=== PATIENT | male | born 1955 | race Two or more races ===

== ENCOUNTER 2024-08-28 03:04 | Inpatient (IN) | payer OTHER ==
[~2024-08-28] VITALS: Ht 167.6 cm; Wt 96.7 kg
[~2024-08-28 03:04] MED LIST: DIVA500T13 PO; EMPA1TAB PO; INSUINJ37 SC; LEVO175T4 PO; LISI-275 PO; RISP0.5T14 PO; SERT-160 PO; SIMV20TA20 PO
[2024-08-28 04:05] LABS: Basophils # (auto) 0 10 ^3/uL (0-0.2); Basophils % (auto) 0.2 % (0.0-2.0); Eosinophils # (auto) 0 10 ^3/uL (0-0.8); Hematocrit 47.2 % (41.0-53.0); Hemoglobin 15.9 g/dL (13.5-17.5); Lymphocytes # (auto) 0.6 10 ^3/uL (0.4-5.4); Lymphocytes % (auto) 9.7 % (10.0-50.0); Mean Corpuscular Hgb Conc. 33.8 g/dL (32.0-36.0); Mean Corpuscular Volume 91.8 fL (80.0-100.0); Monocytes # (auto) 1.1 10 ^3/uL (0-1.3); Neutrophils # (auto) 4.6 10 ^3/uL (1.6-8.6); Neutrophils % (auto) 72.1 % (37.0-80.0); Nucleated Red Blood Cells % 0.1 %; Platelet Count (auto) 103 10^3/uL (140-450); Red Blood Cells 5.14 10^6/uL (4.5-5.90); Red Cell Distribution Width 14.9 % (11.8-14.3); White Blood Cell 6.4 10^3/uL (4.4-10.8)
--- NOTE | 2024-08-28 04:05 | ED.PDOC ---
History of Present Illness HPI Comments 69 y/o M, with a Hx of DM, HLD, HTN, obesity, and TBI, is BIBA for c/o non- radiating, lower back pain and dizziness, today. Per EMS report, patient is a poor historian and endorses on onset of symptoms with associated imbalance and difficulty walking after having a fall and head injury w/o seeking medical in tervention "2x weeks ago." Patient was found on scene by EMS staff with a blood glucose of 128, SpO2 of 88%RA, and pulse rate of 107, with all remaining vitals within yahir limits. En route, patient was placed on 2lpm O2. Upon arrival to ED and time of assessment, patient comments on no recent additional significant event aside from recent Covid19 sick contact exposure at home from residing house-mates. Patient endorses on no further relevant or pertinent past medical, surgical, or family Hx. Patient denies having any chest pain, shortness of breath, headache, urinary symptoms, fever, chills, or other associated symptoms or modifiers at this time. 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 Notes, Medications, Allergies Allergies: Coded Allergies: NO KNOWN ALLERGIES (Unverified , 08/28/24) Information Source: Patient, Emergency Med Personnel Mode of Arrival: EMS Severity: Moderate Timing: Weeks Duration: Since onset Prehospital treatment: 12 Lead EKG, Accucheck (128), [employer], Oxygen (2lpm) Past Medical History PAST MEDICAL HISTORY: DM, High Lipids, HTN Past Medical History (Other): obesity, TBI Surgical History: Denies all surgeries Family History Family History: Unknown Social History Smoker: Non-Smoker Alcohol: Denies ETOH Use Drugs: Denies Drug Use Lives In: Home, Assisted Care Constitutional: denies: chills, diaphoresis, fatigue, fever, malaise, sweats, weakness, others EENTM: denies: blurred vision, double vision, ear bleeding, ear discharge, ear drainage, ear pain, ear ringing, eye pain, eye redness, hearing loss, mouth pain, mouth swelling, nasal discharge, nose bleeding, nose congestion, nose pain, photophobia, tearing, throat pain, throat swelling, voice changes, others Respiratory: denies: cough, hemoptysis, orthopnea, SOB at rest, shortness of breath, SOB with excertion, stridor, wheezing, others Cardiovascular: denies: chest pain, dizzy spells, diaphoresis, Dyspnea on exertion, edema, irregular heart beat, left arm pain, lightheadedness, palpitations, PND, syncope, others Gastrointestinal: denies: abdomen distended, abdominal pain, blood streaked bowels, constipated, diarrhea, dysphagia, difficulty swallowing, hematemesis, melena, nausea, poor appetite, poor fluid intake, rectal bleeding, rectal pain, vomiting, others Genitourinary: denies: burning, dysuria, flank pain, frequency, hematuria, incontinence, penile discharge, penile sore, pain, testicle pain, testicle swelling, urgency, others Neurological: reports: dizziness; denies: fainting, headache, left sided numbness, left sided weakness, numbness, paresthesia, pre-existing deficit, right sided numbness, right sided weakness, seizure, speech problems, tingling, tremors, weakness, others Musculoskeletal: reports: back pain; denies: gout, joint pain, joint swelling, muscle pain, muscle stiffness, neck pain, others Integumetry: denies: bruises, change in color, change in hair/nails, dryness, laceration, lesions, lumps, rash, wounds, others Allergic/Immunocompromised: denies: Difficulty Healing, Frequent Infections, Hives, Itching, others Hematologic/Lymphatic: denies: anemia, blood clots, easy bleeding, easy bruising, swollen glands, others Endocrine: denies: excessive hunger, excessive sweating, excessive thirst, excessive urination, flushing, intolerance to cold, intolerance to heat, unexplained weight gain, unexplained weight loss, others Psychiatric: denies: anxiety, bipolar disorder, hopeless, panic disorder, schizophrenia, sleepless, suicidal, others All Other Systems: Reviewed and Negative Physical Exam General Appearance: No Apparent Distress, Obese, Other (chronically ill appearing ) HEENT: Normal ENT Inspection, Pharynx Normal, TMs Normal Neck: Full Range of Motion, Non-Tender, Normal, Normal Inspection Respiratory: Chest Non-Tender, No Accessory Muscle Use, Other (hypoxic on 2lpm NC) Cardiovascular: No Edema, No JVD, No Murmur, No Gallop, Normal Peripheral Pulses, Regular Rate/Rhythm Breast Exam: Deferred Gastrointestinal: No Organomegaly, Non Tender, No Pulsatile Mass, Normal Bowel Sounds, Soft Genitalia: Deferred Pelvic: Deferred Rectal: Deferred Extremities: No calf tenderness, Normal capillary refill, Normal inspection, Normal range of motion, Non-tender, No pedal edema Musculoskeletal : Apperance: Normal 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 Was a procedure done?: No EKG EKG : Pulse Rate (adult): 103 [place]: Normal Cardiac Rhythm: ST Block: None Hypertrophy: None ST: Normal Differential Dx Considerations may include: viral syndrome, vertigo, UTI, electrolyte imbalance, chronic back pain X-Ray, Labs, Meds, VS Vital Signs Date Time Temp Pulse Resp B/P (MAP) Pulse Ox O2 Delivery O2 Flow Rate FiO2 08/28/24 04:48 111 26 99 Nasal Cannula* 4 36 08/28/24 04:07 99.6 106 34 131/71 (91) 98 99.6 08/28/24 04:05 103 08/28/24 03:19 103 08/28/24 03:09 98.3 104 20 146/75 (98) 98 Lab Test 08/28/24 04:58 08/28/24 04:55 08/28/24 04:40 08/28/24 03:46 Range/Units Urine Color Pending Urine Clarity Pending Urine pH Pending Urine Specific [place] Pending Urine Protein Pending Urine Ketones Pending Urine Blood Pending Urine Nitrite Pending Urine Bilirubin Pending Urine Urobilinogen Pending Urine Leukocyte Esterase Pending Urine RBC Pending Urine WBC Pending Urine Squamous Epithelial Cells Pending Urine Bacteria Pending Urine Glucose Pending Influenza Type A Antigen Negative Negative Influenza Type B Antigen Negative Negative SARS-CoV-2 Antigen (Rapid) Positive *A NEGATIVE Troponin I High Sensitivity 3 L 4 </=54 ng/L White Blood Count 6.4 4.4-10.8 10^3/uL Red Blood Count 5.14 4.5-5.90 10^6/uL Hemoglobin 15.9 13.5-17.5 g/dL Hematocrit 47.2 41.0-53.0 % Mean Corpuscular Volume 91.8 80.0-100.0 fL Mean Corpuscular Hemoglobin 31.0 28.0-32.0 pg Mean Corpuscular Hemoglobin Concent 33.8 32.0-36.0 g/dL Red Cell Distribution Width 14.9 H 11.8-14.3 % Platelet Count 103 L 140-450 10^3/uL Mean Platelet Volume 8.4 6.9-10.8 fL Neutrophils (%) (Auto) 72.1 37.0-80.0 % Lymphocytes (%) (Auto) 9.7 L 10.0-50.0 % Monocytes (%) (Auto) 18.0 H 0.0-12.0 % Eosinophils (%) (Auto) 0.0 0.0-7.0 % Basophils (%) (Auto) 0.2 0.0-2.0 % Neutrophils # (Auto) 4.6 1.6-8.6 10 ^3/uL Lymphocytes # (Auto) 0.6 0.4-5.4 10 ^3/uL Monocytes # (Auto) 1.1 0-1.3 10 ^3/uL Eosinophils # (Auto) 0 0-0.8 10 ^3/uL Basophils # (Auto) 0 0-0.2 10 ^3/uL Nucleated Red Blood Cells 0.1 % Sodium Level 134 L 136-145 mmol/L Potassium Level 4.5 3.5-5.1 mmol/L Chloride Level 100 98-107 mmol/L Carbon Dioxide Level 28 20-31 mmol/L Anion Gap 6 5-15 Blood Urea Nitrogen 14 9-23 mg/dL Creatinine 0.81 0.700-1.30 mg/dL Glomerular Filtration Rate Calc 95 >90 mL/min BUN/Creatinine Ratio 17.3 10.0-20.0 Serum Glucose 121 H 74-106 mg/dL Calcium Level 9.1 8.7-10.4 mg/dL [address] [address] Ph: [phone] DIAGNOSTIC IMAGING Diagnostic Imaging Report : [id number] Signed PATIENT: FABI MARINELLI ACCT: [id number] UNIT: [id number] : 1955 LOC: ER ROOM / BED: / AGE / SEX: 69 / M ADM STATUS: REG ER SERVICE [id number] ORDERING PHYSICIAN: BRUCE BALDERAS MD PROCEDURE(s): CXRP - CHEST PORTABLE REASON: sob ORDER NUMBER(s): [id number], ACCESSION NUMBER(s): [id number] CHEST RADIOGRAPH Indication:sob Technique: Single frontal view of the chest was obtained Comparison: None FINDINGS: Lines and Tubes: None Lungs: Lungs are hypoinflated. Bilateral interstitial prominence. Pleura: No effusion. No pneumothorax. Cardiomediastinal contours: Cardiac silhouette is magnified. Bones: No acute osseous abnormality. IMPRESSION: 1. Pulmonary congestion. ATED BY: TAMI VINCENT MD DICTATED DATE/TIME: 08/28/24412 SIGNED BY: TAMI VINCENT MD SIGNED DATE/TIME: 08/28/24412 CC: Time of 1ST Reevaluation: 03:50 Reevaluation 1ST: Unchanged Patient Education/Counseling: Diagnosis, Treatment Family Education/Counseling: No Family Present Departure 1 Departure Time of Disposition: 05:43 (Patient presented with acute shortness of breath concerning for COPD, Pneumonia, ACS, CHF, Pneumothorax. Less likely PE, Dissection. Data: 1. I ordered and reviewed the result of at least 3 labs including a CBC, BMP, and Troponin. 2. I independently interpreted the following tests: Chest X-ray shows congestion .Risk:This patient has a high risk of morbidity due to further diagnostic testing or treatment and may suffer from respiratory or cardiac etiology . Workup reveals COVID with oxygen requirement and patient should be admitted for further workup. and possible expert consultation.) Impression: Primary Impression: Acute respiratory failure with hypoxia Additional Impression: COVID-19 Disposition: 09 ADMITTED INPATIENT Admit to: Med Surg Condition: Serious Critical Care Note Critical Care Time?: Yes Critical care comment: Acute hypoxia Authorized and Performed by: Bruce Balderas MD Total critical care time: Approximately 44 minutes Due to a high probability of clinically significant, life threatening det erioration, the patient required my highest level of preparedness to intervene emergently and I personally spent this critical care time directly and personally managing the patient. This critical care time included obtaining a history; examining the patient; pulse oximetry; ordering and review of studies; arranging urgent treatment with development of a management plan; evaluation of patient's response to treatment; frequent reassessment; and, discussions with other providers. This critical care time was performed to assess and manage the high probability of imminent, life-threatening deterioration that could result in multi-organ failure. It was exclusive of separately billable procedures and treating other patients and teaching time. Please see my other sections and the rest of the note for further information on patient assessment and treatment. Stability Stability form required: No Heart Score Heart Score: Heart Score Response (Comments) Value History N/A 0 EKG N/A 0 Age N/A 0 Risk Factors N/A 0 Troponin N/A 0 Total 0 I personally scribed for BRUCE BALDERAS MD ([email or web address]) on 08/28/24 at 04:05. Electronically submitted by Gamaliel Aguirre ([email or web address]). I personally scribed for BRUCE BALDERAS MD ([email or web address]) on 08/28/24 at 05:39. Electronically submitted by Gamaliel Aguirre ([email or web address]). BRUCE BALDERAS MD Aug 28, 2024 04:05
--- NOTE | 2024-08-28 04:16 | DVH ---
CHEST RADIOGRAPH Indication:sob Technique: Single frontal view of the chest was obtained Comparison: None FINDINGS: Lines and Tubes: None Lungs: Lungs are hypoinflated. Bilateral interstitial prominence. Pleura: No effusion. No pneumothorax. Cardiomediastinal contours: Cardiac silhouette is magnified. Bones: No acute osseous abnormality. IMPRESSION: 1. Pulmonary congestion.
[2024-08-28 04:19] LABS: Chloride 100 mmol/L (98-107); Potassium 4.5 mmol/L (3.5-5.1); Sodium 134 mmol/L (136-145)
[2024-08-28 04:20] LABS: Anion Gap 6 (5-15); Calcium 9.1 mg/dL (8.7-10.4); Carbon Dioxide 28 mmol/L (20-31)
[2024-08-28 04:25] LABS: BUN/Creatinine Ratio 17.3 (10.0-20.0); Blood Urea Nitrogen 14 mg/dL (9-23); Glucose 121 mg/dL (74-106)
[2024-08-28 04:48] VITALS: PULSE 111; RESP 26; O2SAT 99
[2024-08-28 05:19] LABS: Urine Bacteria None Seen /hpf (None Seen)
[2024-08-28 05:40] LABS: Rapid Influenza A Negative (Negative); Rapid Influenza B Negative (Negative)
[2024-08-28 05:42] LABS: COVID19 ANTIGEN SOFIA FIA POSITIVE (NEGATIVE)
[2024-08-28 05:50] LABS: Urine Blood Negative /uL (Negative); Urine Clarity Clear (Clear); Urine Color Light-Yellow (Yellow); Urine Protein, UAD Negative (Negative); Urine Specific Gravity 1.039 (1.001-1.035); Urine Urobilinogen Normal (Negative); Urine WBC 1 /hpf (0 - 3); Urine pH 6.5 (5.0-9.0)
[2024-08-28] MEDS: methylPREDNISolone SOD SUCC 125 MG/2 ML VL IV ONE (06:12)
--- NOTE | 2024-08-28 06:17 | ECG ---
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
[2024-08-28 08:12] VITALS: O2SAT 97
--- NOTE | 2024-08-28 13:34 | DVHHP2 ---
History of Present Illness Reason for Visit: Low back pain History of Present Illness 69-year-old male with a known history of diabetes mellitus type 2, hypertension, dyslipidemia, morbid obesity class two, history of traumatic brain injury brought in by paramedics we will low back pain, dizziness, difficulty on walking, recent exposure to COVID-19 with sick pupil at home from found to have O2 saturation 88% on room air requiring 4 L of oxygen. Patient was found to have COVID-19 pneumonia. Patient denies any fevers chills , shortness for breath or cough. To be noted patient has a history of traumatic brain injury, very poor historian. 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 Allergies: Coded Allergies: NO KNOWN ALLERGIES (Unverified , 08/28/24) Exam Vital Signs Vital Signs Date Time Temp Pulse Resp B/P (MAP) Pulse Ox O2 Delivery O2 Flow Rate FiO2 08/28/24 12:00 99 24 131/71 (91) 96 08/28/24 08:12 Nasal Cannula* 4 36 08/28/24 04:07 99.6 99.6 Exam HEENT pupils are reactive Neck is supple CVS S1-S2 regular rate and rhythm Respiratory bilateral diminished breath sounds at lung bases GI positive bowel sound Extremity no edema [employer] no motor deficit Labs/Xrays Labs Test 08/28/24 04:58 08/28/24 04:55 08/28/24 04:40 08/28/24 03:46 Range/Units Urine Color Light-yellow Yellow Urine Clarity Clear Clear Urine pH 6.5 5.0-9.0 Urine Specific [place] 1.039 H 1.001-1.035 Urine Protein Negative Negative Urine Ketones 2+ H Negative Urine Blood Negative Negative /uL Urine Nitrite Negative Negative Urine Bilirubin Negative Negative Urine Urobilinogen Normal Negative mg/dL Urine Leukocyte Esterase Negative Negative /uL Urine RBC 4 0 - 3 /hpf Urine WBC 1 0 - 3 /hpf Urine Squamous Epithelial Cells Few <5 /hpf Urine Bacteria None seen None Seen /hpf Urine Glucose 4+ H Normal mg/dL Influenza Type A Antigen Negative Negative Influenza Type B Antigen Negative Negative SARS-CoV-2 Antigen (Rapid) Positive *A NEGATIVE Troponin I High Sensitivity 3 L </=54 ng/L White Blood Count 6.4 4.4-10.8 10^3/uL Red Blood Count 5.14 4.5-5.90 10^6/uL Hemoglobin 15.9 13.5-17.5 g/dL Hematocrit 47.2 41.0-53.0 % Mean Corpuscular Volume 91.8 80.0-100.0 fL Mean Corpuscular Hemoglobin 31.0 28.0-32.0 pg Mean Corpuscular Hemoglobin Concent 33.8 32.0-36.0 g/dL Red Cell Distribution Width 14.9 H 11.8-14.3 % Platelet Count 103 L 140-450 10^3/uL Mean Platelet Volume 8.4 6.9-10.8 fL Neutrophils (%) (Auto) 72.1 37.0-80.0 % Lymphocytes (%) (Auto) 9.7 L 10.0-50.0 % Monocytes (%) (Auto) 18.0 H 0.0-12.0 % Eosinophils (%) (Auto) 0.0 0.0-7.0 % Basophils (%) (Auto) 0.2 0.0-2.0 % Neutrophils # (Auto) 4.6 1.6-8.6 10 ^3/uL Lymphocytes # (Auto) 0.6 0.4-5.4 10 ^3/uL Monocytes # (Auto) 1.1 0-1.3 10 ^3/uL Eosinophils # (Auto) 0 0-0.8 10 ^3/uL Basophils # (Auto) 0 0-0.2 10 ^3/uL Nucleated Red Blood Cells 0.1 % Sodium Level 134 L 136-145 mmol/L Potassium Level 4.5 3.5-5.1 mmol/L Chloride Level 100 98-107 mmol/L Carbon Dioxide Level 28 20-31 mmol/L Anion Gap 6 5-15 Blood Urea Nitrogen 14 9-23 mg/dL Creatinine 0.81 0.700-1.30 mg/dL Glomerular Filtration Rate Calc 95 >90 mL/min BUN/Creatinine Ratio 17.3 10.0-20.0 Serum Glucose 121 H 74-106 mg/dL Calcium Level 9.1 8.7-10.4 mg/dL Assessment/Plan Assessment/Plan 69-year-old male with a known history of traumatic brain injury, diabetes mellitus type 2, hypertension, dyslipidemia, morbid obesity class two presented to the hospital with low back pain unable to walk found to have 1. Acute hypoxic respiratory failure secondary to COVID-19 pneumonia 2. COVID-19 pneumonia 3. Diabetes mellitus type 2 4. Hypertension 5. Dyslipidemia 6. Morbid obesity class two -contact/droplet isolation, dexamethasone, Infectious Disease consultation -continue O2 supplementation, plan of care discussed with the patient and patient's bedside RN. Plan discussed with: Patient Problem List: (1) Acute respiratory failure with hypoxia (2) COVID-19 Date of Service: Aug 28, 2024 Billing Provider: CARA BARNARD MD Common Visit Codes: NOT BILLABLE CARA BARNARD MD Aug 28, 2024 13:34
[2024-08-28] MEDS ORDERED: ONDANSETRON HCL 4 MG/2 ML VIAL IV PRN (13:45)
[2024-08-28] MEDS ORDERED: ACETAMINOPHEN 325 MG TAB PO PRN (13:45)
[2024-08-28] MEDS ORDERED: NITROGLYCERIN 0.4 MG SL TAB SL PRN (13:45)
[2024-08-28] MEDS ORDERED: MORPHINE SULFATE INJ 2 MG/ml SYRG IV PRN ×2 (13:45)
[2024-08-28] MEDS: DexAMETHasone SOD PHOS 10MG/1ML VIAL INJ IV SCH (14:00)
[2024-08-28] MEDS: HYDROcodone-ACET 5/325MG TAB PO PRN (19:08)
[2024-08-28 20:00] VITALS: PULSE 81
[2024-08-28 21:00] VITALS: BP 113/66; PULSE 17; RESP 96; TEMP 97.6; O2SAT 96
[2024-08-28 21:08] VITALS: BP 113/66; PULSE 77; PULSE 81; RESP 17; RESP 18; TEMP 97.6; O2SAT 96; O2SAT 97
[2024-08-28] MEDS: ASCORBIC ACID 500 MG TAB PO SCH (21:48)
[2024-08-29] VITALS (8 sets, daily range): BP systolic 110–156; BP diastolic 72–82; PULSE 63–72; RESP 17–18; TEMP 97.5–98.4; O2SAT 94–99
[2024-08-29 05:17] LABS: Basophils # (auto) 0 10 ^3/uL (0-0.2); Basophils % (auto) 0.2 % (0.0-2.0); Eosinophils # (auto) 0 10 ^3/uL (0-0.8); Hematocrit 49.2 % (41.0-53.0); Hemoglobin 16.1 g/dL (13.5-17.5); Lymphocytes # (auto) 0.9 10 ^3/uL (0.4-5.4); Lymphocytes % (auto) 16.1 % (10.0-50.0); Mean Corpuscular Hemoglobin 30.5 pg (28.0-32.0); Mean Corpuscular Hgb Conc. 32.8 g/dL (32.0-36.0); Monocytes # (auto) 0.8 10 ^3/uL (0-1.3); Neutrophils # (auto) 4.1 10 ^3/uL (1.6-8.6); Neutrophils % (auto) 70.7 % (37.0-80.0); Nucleated Red Blood Cells % 0.2 %; Platelet Count (auto) 102 10^3/uL (140-450); Red Cell Distribution Width 14.8 % (11.8-14.3); White Blood Cell 5.8 10^3/uL (4.4-10.8)
[2024-08-29 05:23] LABS: Alanine Aminotransferase 42 U/L (7-40); Albumin 4.1 g/dL (3.2-4.8); Alkaline Phosphatase 68 U/L (46-116); Anion Gap 6 (5-15); Aspartate Aminotransferase 31 U/L (13-40); BUN/Creatinine Ratio 34.4 (10.0-20.0); Bilirubin, Total 0.4 mg/dL (0.2-1.0); Blood Urea Nitrogen 22 mg/dL (9-23); Calcium 9.3 mg/dL (8.7-10.4); Carbon Dioxide 28 mmol/L (20-31); Chloride 104 mmol/L (98-107); Glucose 114 mg/dL (74-106); Potassium 4.4 mmol/L (3.5-5.1); Sodium 138 mmol/L (136-145); Total Protein 7.3 g/dL (5.7-8.2)
[2024-08-29] MEDS: ZINC SULFATE 220mg CAP or TAB PO SCH (09:04)
[2024-08-29] MEDS: MULTIPLE VITAMIN TAB PO SCH (09:04)
[2024-08-29] MEDS: ENOXAPARIN SOD 40 MG/0.4 ML SYRINGE SC SCH (09:04)
--- NOTE | 2024-08-29 09:59 | DVHINCON2 ---
Date of service: Aug 29, [address] Allison Reason for Consultation COVID History of Present Illness Patient is a 69-year-old male presents to the hospital for the complaint of low back pain, dizziness and difficulty walking. He denies any fever, chills , shortness of breath or cough. He has recent exposure to COVID-19 with sick people at home. He found to have O2 saturation 88% on room air requiring 4 L of oxygen. Patient was found to have COVID-19 pneumonia. Patient has a history of traumatic brain injury, he is very poor historian. Chest x-ray revealed: 08/28: Pulmonary congestion Past Medical History Patient's past medical history is significant for diabetes mellitus type 2, hypertension, dyslipidemia, morbid obesity class two, chronic low back pain and history of traumatic brain injury. Social History Smoke: No ALCOHOL: none Lives: Roommate Allergies: Coded Allergies: NO KNOWN ALLERGIES (Unverified , 08/28/24) Home Meds Reported Medications Levothyroxine Sodium (Levothyroxine Sodium) 175 Mcg Tab, 1 TAB PO DAILY for 90 Days, #90 08/28/24 Sertraline Hcl (Sertraline Hcl) 100 Mg Tab, 2 TAB PO DAILY for 90 Days, #180 08/28/24 Simvastatin (Simvastatin) 20 Mg Tab, 1 TAB PO DAILY for 90 Days, #90 08/28/24 Insulin Glargine (Lantus Solostar) 100 Unit/Ml Inj, 55 UNIT SC HS for 90 Days, #45 08/28/24 Lisinopril (Lisinopril) 5 Mg Tab, 1 TAB PO DAILY for 90 Days, #90 08/28/24 Empagliflozin (Jardiance) 10 Mg Tab, 1 TAB PO DAILY for 30 Days, #30 08/28/24 Risperidone (Risperidone Odt) 0.5 Mg Tab, 2 TAB PO HS for 90 Days, #180 08/28/24 Divalproex Sodium (Divalproex Sodium) 500 Mg Tab, 1 TAB PO TID for 20 Days, #60 08/28/24 Current Medications Current Medications Medications (Trade) Dose Ordered Sig/Verito Route PRN Reason Start Time Stop Time Status Last Admin Acetaminophen/ Hydrocodone Bitart ([place] 5/325MG Tab) 1 tab Q4HP PRN PO MODERATE PAIN (4-6 PAIN SCALE) 08/28/24 13:45 08/29/24 04:50 Ondansetron HCl (Zofran) 4 mg Q4HP PRN IV NAUSEA / VOMITING 08/28/24 13:45 Enoxaparin Sodium (Lovenox) 40 mg DAILY SC 08/29/24 10:00 08/29/24 09:04 Zinc Sulfate 220 mg DAILY PO 08/29/24 10:00 08/29/24 09:04 Ascorbic Acid (Vitamin C Tablet) 500 mg BID PO 08/28/24 22:00 08/29/24 09:04 Multivitamins (Mvi Tab) 1 tab DAILY PO 08/29/24 10:00 08/29/24 09:04 Acetaminophen (Tylenol Tablet) 650 mg Q6HP PRN PO PAIN SCALE 1-3 OR TEMP>100.4 08/28/24 13:45 Morphine Sulfate 2 mg Q4HPRN PRN IV SEVERE PAIN (7-10 PAIN SCALE) 08/28/24 13:45 Nitroglycerin (Ntrostat Sublingual) 0.4 mg Q5MINP PRN SL FOR CHEST PAIN 08/28/24 13:45 Morphine Sulfate 2 mg Q30M PRN IV FOR CHEST PAIN 08/28/24 13:45 Dexamethasone Sodium Phosphate (Decadron Injection) 6 mg DAILY IV 08/28/24 13:45 08/29/24 09:04 Review of Systems poor historian Vital Signs Vital Signs Date Time Temp Pulse Resp B/P (MAP) Pulse Ox O2 Delivery O2 Flow Rate FiO2 08/29/24 05:00 98.2 67 18 136/76 (96) 98 98.2 08/28/24 21:08 Nasal Cannula* 3 32 Physical Exam General: Patient appears alert, comfortable and well-appearing. HEENT: Normocephalic, atraumatic, Sclera anicteric, conjunctiva clear, No nasal discharge or congestion. Mucous membranes moist, no tonsillar erythema or exudates. Neck: No cervical lymphadenopathy or masses. No neck stiffness. Lungs: Breath sounds clear bilaterally, no wheezes, rales, or rhonchi. No use of accessory muscles or respiratory distress. Cardiovascular: Regular rate and rhythm, no murmurs, rubs, or gallops. Abdomen: Soft, non-tender, non-distended. Bowel sounds present in all quadrants. No hepatosplenomegaly or masses. Skin: No rash, petechiae, or ecchymosis. Extremities: No edema, cyanosis, or clubbing. No tenderness to palpation, erythema, or swelling in joints. No signs of deep vein thrombosis (DVT). Neurologic: truaumatic brain injury Labs/Diagnostic Data Labs Test 08/29/24 04:33 08/28/24 04:58 08/28/24 04:55 08/28/24 04:40 Range/Units White Blood Count 5.8 4.4-10.8 10^3/uL Red Blood Count 5.30 4.5-5.90 10^6/uL Hemoglobin 16.1 13.5-17.5 g/dL Hematocrit 49.2 41.0-53.0 % Mean Corpuscular Volume 93.0 80.0-100.0 fL Mean Corpuscular Hemoglobin 30.5 28.0-32.0 pg Mean Corpuscular Hemoglobin Concent 32.8 32.0-36.0 g/dL Red Cell Distribution Width 14.8 H 11.8-14.3 % Platelet Count 102 L 140-450 10^3/uL Mean Platelet Volume 8.5 6.9-10.8 fL Neutrophils (%) (Auto) 70.7 37.0-80.0 % Lymphocytes (%) (Auto) 16.1 10.0-50.0 % Monocytes (%) (Auto) 13.0 H 0.0-12.0 % Eosinophils (%) (Auto) 0.0 0.0-7.0 % Basophils (%) (Auto) 0.2 0.0-2.0 % Neutrophils # (Auto) 4.1 1.6-8.6 10 ^3/uL Lymphocytes # (Auto) 0.9 0.4-5.4 10 ^3/uL Monocytes # (Auto) 0.8 0-1.3 10 ^3/uL Eosinophils # (Auto) 0 0-0.8 10 ^3/uL Basophils # (Auto) 0 0-0.2 10 ^3/uL Nucleated Red Blood Cells 0.2 % Sodium Level 138 136-145 mmol/L Potassium Level 4.4 3.5-5.1 mmol/L Chloride Level 104 98-107 mmol/L Carbon Dioxide Level 28 20-31 mmol/L Anion Gap 6 5-15 Blood Urea Nitrogen 22 9-23 mg/dL Creatinine 0.64 L 0.700-1.30 mg/dL Glomerular Filtration Rate Calc 102 >90 mL/min BUN/Creatinine Ratio 34.4 H 10.0-20.0 Serum Glucose 114 H 74-106 mg/dL Calcium Level 9.3 8.7-10.4 mg/dL Total Bilirubin 0.4 0.2-1.0 mg/dL Aspartate Amino Transferase (AST) 31 13-40 U/L Alanine Aminotransferase (ALT) 42 H 7-40 U/L Alkaline Phosphatase 68 46-116 U/L Total Protein 7.3 5.7-8.2 g/dL Albumin 4.1 3.2-4.8 g/dL Urine Color Light-yellow Yellow Urine Clarity Clear Clear Urine pH 6.5 5.0-9.0 Urine Specific [place] 1.039 H 1.001-1.035 Urine Protein Negative Negative Urine Ketones 2+ H Negative Urine Blood Negative Negative /uL Urine Nitrite Negative Negative Urine Bilirubin Negative Negative Urine Urobilinogen Normal Negative mg/dL Urine Leukocyte Esterase Negative Negative /uL Urine RBC 4 0 - 3 /hpf Urine WBC 1 0 - 3 /hpf Urine Squamous Epithelial Cells Few <5 /hpf Urine Bacteria None seen None Seen /hpf Urine Glucose 4+ H Normal mg/dL Influenza Type A Antigen Negative Negative Influenza Type B Antigen Negative Negative SARS-CoV-2 Antigen (Rapid) Positive *A NEGATIVE Troponin I High Sensitivity 3 L </=54 ng/L Assessment Patient is a 69-year-old male with 1. COVID-19 infection 2. Acute hypoxic respiratory failure Recommendations 1. Start remdesivir for 5 days 2. Continue Dexamethasone 6 mg per daily for 10 days or until discharge 3. Consider self proning Thank you for consultation. Plan discussed with the nurse and physician. Plan discussed with: Other ALYSE WEBER MD Aug 29, 2024 09:59
[2024-08-29] MEDS ORDERED: REMDESIVIR PER PHARMACY 0 ML IV SCH (10:00)
[2024-08-29] MEDS ORDERED: DEXTROSE (50%) 50ML SYRG IV PRN (11:15)
[2024-08-29] MEDS: REMDESIVIR 200mg in NS 210mL LOADING DOSE ADULT IV ONE (11:18)
[2024-08-29] MEDS: ACCU-CHEK COMFORT CURVE STRIP VI SCH (11:30)
[2024-08-29] MEDS: InsuLIN REG 1unit/0.01ml Soln (100units/ml) SC SCH (11:30)
--- NOTE | 2024-08-29 16:19 | DVHPN2 ---
Subjective Overnight events noted. Patient currently on remdesivir. 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 Medications Current Medications Medications Dose Ordered Sig/Verito Route Start Time Stop Time Status Last Admin Dose Admin Acetaminophen/ Hydrocodone Bitart 1 tab Q4HP PRN PO 08/28/24 13:45 08/29/24 04:50 1 TAB Ondansetron HCl 4 mg Q4HP PRN IV 08/28/24 13:45 Enoxaparin Sodium 40 mg DAILY SC 08/29/24 10:00 08/29/24 09:04 40 MG Zinc Sulfate 220 mg DAILY PO 08/29/24 10:00 08/29/24 09:04 220 MG Ascorbic Acid 500 mg BID PO 08/28/24 22:00 08/29/24 09:04 500 MG Multivitamins 1 tab DAILY PO 08/29/24 10:00 08/29/24 09:04 1 TAB Acetaminophen 650 mg Q6HP PRN PO 08/28/24 13:45 Morphine Sulfate 2 mg Q4HPRN PRN IV 08/28/24 13:45 Nitroglycerin 0.4 mg Q5MINP PRN SL 08/28/24 13:45 Morphine Sulfate 2 mg Q30M PRN IV 08/28/24 13:45 Dexamethasone Sodium Phosphate 6 mg DAILY IV 08/28/24 13:45 08/29/24 09:04 6 MG Remdesivir 0 ml @ 0 mls/hr PER PHARMACY IV 08/29/24 10:00 09/02/24 10:01 Remdesivir 100 mg/ Sodium Chloride 250 ml @ 250 mls/hr DAILY@1500 IV 08/30/24 15:00 09/02/24 15:59 Diagnostic Test (Pha) 1 strip ACHS 08/29/24 11:30 08/29/24 11:30 1 STRIP Insulin Human Regular ACHS SC 08/29/24 11:30 08/29/24 11:30 3 UNITS Dextrose 50 ml UD PRN IV 08/29/24 11:15 Laboratory Results Laboratory Tests 08/29/24 04:33 Chemistry Test 08/29/24 04:33 Albumin 4.1 g/dL (3.2-4.8) Calcium Level 9.3 mg/dL (8.7-10.4) Total Protein 7.3 g/dL (5.7-8.2) LFT Test 08/29/24 04:33 Alanine Aminotransferase (ALT) 42 U/L (7-40) H Alkaline Phosphatase 68 U/L (46-116) Aspartate Amino Transferase (AST) 31 U/L (13-40) Total Bilirubin 0.4 mg/dL (0.2-1.0) Urinalysis Test 08/28/24 04:58 Urine Color Light-yellow (Yellow) Urine Clarity Clear (Clear) Urine pH 6.5 (5.0-9.0) Urine Specific [place] 1.039 (1.001-1.035) Urine Protein Negative (Negative) Urine Ketones 2+ (Negative) H Urine Blood Negative /uL (Negative) Urine Nitrite Negative (Negative) Urine Bilirubin Negative (Negative) Urine Urobilinogen Normal mg/dL (Negative) Urine Leukocyte Esterase Negative /uL (Negative) Urine RBC 4 /hpf (0 - 3) Urine WBC 1 /hpf (0 - 3) Urine Squamous Epithelial Cells Few /hpf (<5) Urine Bacteria None seen /hpf (None Seen) Urine Glucose 4+ mg/dL (Normal) H Assessment/Plan Assessment/Plan 69-year-old male with a known history of traumatic brain injury, diabetes mellitus type 2, hypertension, dyslipidemia, morbid obesity class two presented to the hospital with low back pain unable to walk found to have 1. Acute hypoxic respiratory failure secondary to COVID-19 pneumonia 2. COVID-19 pneumonia 3. Diabetes mellitus type 2 4. Hypertension 5. Dyslipidemia 6. Morbid obesity classII -contact/droplet isolation, dexamethasone, Infectious Disease consultation appreciated, continue remdesivir -continue O2 supplementation, plan of care discussed with the patient and patient's bedside RN. Plan discussed with: Patient My Orders Orders - CARA BARNARD MD Procedure Category Date Status Time Insert/Manage Urinary DARIO 08/28/24 In Process Catheter 17:30 Glucose Blood PHA 08/29/24 In Process (Accu-Chek Comfort 11:30 Insulin R (Human) PHA 08/29/24 In Process (Insulin R) 11:30 Dextrose 50% Syringe PHA 08/29/24 In Process 11:15 Date of Service: Aug 29, 2024 Billing Provider: CARA BARNARD MD Common Visit Codes: NOT BILLABLE CARA BARNARD MD Aug 29, 2024 16:19
[2024-08-30] VITALS (8 sets, daily range): BP systolic 121–159; BP diastolic 74–79; PULSE 55–75; RESP 17–22; TEMP 97.5–98.1; O2SAT 97–98
--- NOTE | 2024-08-30 10:32 | DVHPN2 ---
Progress Note - Dictate Date Seen: Aug 30, 2024 Subjective Patient was seen and evaluated. He is alert and awake, oriented x4. Patient stated always have generalized body pain, 6/10 at this time and tolerable. Patient is on 2L oxygen via nasal cannula, tolerated well, no sign of acute distress noted. vital signs Vital Sign Date Time Temp Pulse Resp B/P (MAP) Pulse Ox O2 Delivery O2 Flow Rate FiO2 08/30/24 09:00 97.7 61 22 159/79 (105) 97 97.7 08/30/24 08:00 Nasal Cannula* 2 28 Total Intake and Output 08/29/24 08/29/24 08/30/24 15:00 23:00 07:00 Intake Total 1200 ml 1500 ml Output Total 700 ml 1000 ml Balance 500 ml 500 ml medications Current Medications Medications Dose Ordered Sig/Verito Route Start Time Stop Time Status Last Admin Dose Admin Acetaminophen/ Hydrocodone Bitart 1 tab Q4HP PRN PO 08/28/24 13:45 08/30/24 09:51 1 TAB Ondansetron HCl 4 mg Q4HP PRN IV 08/28/24 13:45 Enoxaparin Sodium 40 mg DAILY SC 08/29/24 10:00 08/30/24 09:37 40 MG Zinc Sulfate 220 mg DAILY PO 08/29/24 10:00 08/30/24 09:37 220 MG Ascorbic Acid 500 mg BID PO 08/28/24 22:00 08/30/24 09:37 500 MG Multivitamins 1 tab DAILY PO 08/29/24 10:00 08/30/24 09:37 1 TAB Acetaminophen 650 mg Q6HP PRN PO 08/28/24 13:45 Morphine Sulfate 2 mg Q4HPRN PRN IV 08/28/24 13:45 Nitroglycerin 0.4 mg Q5MINP PRN SL 08/28/24 13:45 Morphine Sulfate 2 mg Q30M PRN IV 08/28/24 13:45 Dexamethasone Sodium Phosphate 6 mg DAILY IV 08/28/24 13:45 08/30/24 09:37 6 MG Remdesivir 0 ml @ 0 mls/hr PER PHARMACY IV 08/29/24 10:00 09/02/24 10:01 Remdesivir 100 mg/ Sodium Chloride 250 ml @ 250 mls/hr DAILY@1500 IV 08/30/24 15:00 09/02/24 15:59 Diagnostic Test (Pha) 1 strip ACHS 08/29/24 11:30 08/30/24 05:15 1 STRIP Insulin Human Regular ACHS SC 08/29/24 11:30 08/29/24 21:13 6 UNITS Dextrose 50 ml UD PRN IV 08/29/24 11:15 objective General: Patient appears alert, comfortable and well-appearing. HEENT: Normocephalic, atraumatic, Sclera anicteric, conjunctiva clear, No nasal discharge or congestion. Mucous membranes moist, no tonsillar erythema or exudates. Neck: No cervical lymphadenopathy or masses. No neck stiffness. Lungs: Breath sounds clear bilaterally, no wheezes, rales, or rhonchi. No use of accessory muscles or respiratory distress. Cardiovascular: Regular rate and rhythm, no murmurs, rubs, or gallops. Abdomen: Soft, non-tender, non-distended. Bowel sounds present in all quadrants. No hepatosplenomegaly or masses. Skin: No rash, petechiae, or ecchymosis. Extremities: No edema, cyanosis, or clubbing. No tenderness to palpation, erythema, or swelling in joints. No signs of deep vein thrombosis (DVT). Neurologic: Patient is alert and oriented to person, place, and time. Cranial nerves II-XII intact. Motor strength 5/5 bilaterally in all extremities. laboratory and microbiology Laboratory Tests 08/29/24 04:33 Test 08/29/24 04:33 Range/Units Serum Glucose 114 H 74-106 mg/dL Assessment/Plan Patient is a 69-year-old male with 1. COVID-19 infection 2. Acute hypoxic respiratory failure Recommendations 1. Start remdesivir for 5 days 2. Continue Dexamethasone 6 mg per daily for 10 days or until discharge 3. Consider self proning Thank you for consultation. Plan discussed with the nurse and physician. ALYSE WEBER MD Aug 30, 2024 10:32
[2024-08-30] MEDS: NS IV SCH (15:11)
[2024-08-30] MEDS: REMDESIVIR IV SCH (15:11)
--- NOTE | 2024-08-30 16:38 | DVHPN2 ---
Subjective Overnight events noted. Patient currently on remdesivir. 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 Medications Current Medications Medications Dose Ordered Sig/Verito Route Start Time Stop Time Status Last Admin Dose Admin Acetaminophen/ Hydrocodone Bitart 1 tab Q4HP PRN PO 08/28/24 13:45 08/30/24 09:51 1 TAB Ondansetron HCl 4 mg Q4HP PRN IV 08/28/24 13:45 Enoxaparin Sodium 40 mg DAILY SC 08/29/24 10:00 08/30/24 09:37 40 MG Zinc Sulfate 220 mg DAILY PO 08/29/24 10:00 08/30/24 09:37 220 MG Ascorbic Acid 500 mg BID PO 08/28/24 22:00 08/30/24 09:37 500 MG Multivitamins 1 tab DAILY PO 08/29/24 10:00 08/30/24 09:37 1 TAB Acetaminophen 650 mg Q6HP PRN PO 08/28/24 13:45 Morphine Sulfate 2 mg Q4HPRN PRN IV 08/28/24 13:45 Nitroglycerin 0.4 mg Q5MINP PRN SL 08/28/24 13:45 Morphine Sulfate 2 mg Q30M PRN IV 08/28/24 13:45 Dexamethasone Sodium Phosphate 6 mg DAILY IV 08/28/24 13:45 08/30/24 09:37 6 MG Remdesivir 0 ml @ 0 mls/hr PER PHARMACY IV 08/29/24 10:00 09/02/24 10:01 Remdesivir 100 mg/ Sodium Chloride 250 ml @ 250 mls/hr DAILY@1500 IV 08/30/24 15:00 09/02/24 15:59 08/30/24 15:11 250 MLS/HR Diagnostic Test (Pha) 1 strip ACHS 08/29/24 11:30 08/30/24 11:37 1 STRIP Insulin Human Regular ACHS SC 08/29/24 11:30 08/30/24 11:44 3 UNITS Dextrose 50 ml UD PRN IV 08/29/24 11:15 Laboratory Results Laboratory Tests 08/29/24 04:33 Urinalysis Test 08/28/24 04:58 Urine Color Light-yellow (Yellow) Urine Clarity Clear (Clear) Urine pH 6.5 (5.0-9.0) Urine Specific [place] 1.039 (1.001-1.035) Urine Protein Negative (Negative) Urine Ketones 2+ (Negative) H Urine Blood Negative /uL (Negative) Urine Nitrite Negative (Negative) Urine Bilirubin Negative (Negative) Urine Urobilinogen Normal mg/dL (Negative) Urine Leukocyte Esterase Negative /uL (Negative) Urine RBC 4 /hpf (0 - 3) Urine WBC 1 /hpf (0 - 3) Urine Squamous Epithelial Cells Few /hpf (<5) Urine Bacteria None seen /hpf (None Seen) Urine Glucose 4+ mg/dL (Normal) H Assessment/Plan Assessment/Plan 69-year-old male with a known history of traumatic brain injury, diabetes mellitus type 2, hypertension, dyslipidemia, morbid obesity class two presented to the hospital with low back pain unable to walk found to have 1. Acute hypoxic respiratory failure secondary to COVID-19 pneumonia 2. COVID-19 pneumonia 3. Diabetes mellitus type 2 4. Hypertension 5. Dyslipidemia 6. Morbid obesity classII -contact/droplet isolation, dexamethasone, Infectious Disease consultation appreciated, continue remdesivir -continue O2 supplementation, plan of care discussed with the patient and patient's bedside RN. Plan discussed with: Patient Date of Service: Aug 30, 2024 Billing Provider: CARA BARNARD MD Common Visit Codes: NOT BILLABLE CARA BARNARD MD Aug 30, 2024 16:38
[2024-08-31] VITALS (8 sets, daily range): BP systolic 110–140; BP diastolic 67–80; PULSE 53–74; RESP 16–19; TEMP 97.5–98.1; O2SAT 96–98
[2024-08-31] MEDS: LEVOTHYROXINE SODIUM 50 MCG TAB PO SCH (07:40)
[2024-08-31] MEDS: SERTRALINE HCL 50 MG TAB PO SCH (09:29)
[2024-08-31] MEDS: risperiDONE 1 MG TAB PO SCH (09:29)
[2024-08-31] MEDS: LISINOPRIL 5 MG TAB PO SCH (09:30)
--- NOTE | 2024-08-31 13:13 | DVHPN2 ---
Progress Note - Dictate Date Seen: Aug 31, 2024 Subjective Patient was seen and evaluated. He is alert and awake, oriented x4. vital signs Vital Sign Date Time Temp Pulse Resp B/P (MAP) Pulse Ox O2 Delivery O2 Flow Rate FiO2 08/31/24 13:00 97.7 74 18 114/67 (83) 97 97.7 08/31/24 08:00 Nasal Cannula* 3 32 Total Intake and Output 08/30/24 08/30/24 08/31/24 15:00 23:00 07:00 Intake Total 1350 ml 600 ml Output Total 1350 ml 375 ml Balance 0 ml 225 ml medications Current Medications Medications Dose Ordered Sig/Verito Route Start Time Stop Time Status Last Admin Dose Admin Acetaminophen/ Hydrocodone Bitart 1 tab Q4HP PRN PO 08/28/24 13:45 08/31/24 01:09 1 TAB Ondansetron HCl 4 mg Q4HP PRN IV 08/28/24 13:45 Enoxaparin Sodium 40 mg DAILY SC 08/29/24 10:00 08/31/24 09:29 40 MG Zinc Sulfate 220 mg DAILY PO 08/29/24 10:00 08/31/24 09:29 220 MG Ascorbic Acid 500 mg BID PO 08/28/24 22:00 08/31/24 09:30 500 MG Multivitamins 1 tab DAILY PO 08/29/24 10:00 08/31/24 09:30 1 TAB Acetaminophen 650 mg Q6HP PRN PO 08/28/24 13:45 Morphine Sulfate 2 mg Q4HPRN PRN IV 08/28/24 13:45 Nitroglycerin 0.4 mg Q5MINP PRN SL 08/28/24 13:45 Morphine Sulfate 2 mg Q30M PRN IV 08/28/24 13:45 Dexamethasone Sodium Phosphate 6 mg DAILY IV 08/28/24 13:45 08/31/24 09:30 6 MG Remdesivir 0 ml @ 0 mls/hr PER PHARMACY IV 08/29/24 10:00 09/02/24 10:01 Remdesivir 100 mg/ Sodium Chloride 250 ml @ 250 mls/hr DAILY@1500 IV 08/30/24 15:00 09/02/24 15:59 08/30/24 15:11 250 MLS/HR Diagnostic Test (Pha) 1 strip ACHS 08/29/24 11:30 08/31/24 11:42 1 STRIP Insulin Human Regular ACHS SC 08/29/24 11:30 08/31/24 11:28 6 UNITS Dextrose 50 ml UD PRN IV 08/29/24 11:15 Divalproex Sodium 500 mg TID PO 08/30/24 22:00 08/31/24 06:32 500 MG Risperidone 1 mg DAILY PO 08/31/24 10:00 08/31/24 09:29 1 MG Sertraline HCl 200 mg DAILY PO 08/31/24 10:00 08/31/24 09:29 200 MG Lisinopril 5 mg DAILY PO 08/31/24 10:00 08/31/24 09:30 5 MG Levothyroxine Sodium 175 mcg QAM@0600 PO 08/31/24 06:00 08/31/24 07:40 175 MCG objective General: Patient appears alert, comfortable and well-appearing. HEENT: Normocephalic, atraumatic, Sclera anicteric, conjunctiva clear, No nasal discharge or congestion. Mucous membranes moist, no tonsillar erythema or exudates. Neck: No cervical lymphadenopathy or masses. No neck stiffness. Lungs: Breath sounds clear bilaterally, no wheezes, rales, or rhonchi. No use of accessory muscles or respiratory distress. Cardiovascular: Regular rate and rhythm, no murmurs, rubs, or gallops. Abdomen: Soft, non-tender, non-distended. Bowel sounds present in all quadrants. No hepatosplenomegaly or masses. Skin: No rash, petechiae, or ecchymosis. Extremities: No edema, cyanosis, or clubbing. No tenderness to palpation, erythema, or swelling in joints. No signs of deep vein thrombosis (DVT). Neurologic: Patient is alert and oriented to person, place, and time. Cranial nerves II-XII intact. Motor strength 5/5 bilaterally in all extremities. laboratory and microbiology Laboratory Tests 08/29/24 04:33 Test 08/29/24 04:33 Range/Units Serum Glucose 114 H 74-106 mg/dL Assessment/Plan Patient is a 69-year-old male with 1. COVID-19 infection 2. Acute hypoxic respiratory failure Recommendations 1. Start remdesivir for 5 days 2. Continue Dexamethasone 6 mg per daily for 10 days or until discharge 3. Consider self proning Thank you for consultation. Plan discussed with the nurse and physician. ALYSE WEBER MD Aug 31, 2024 13:13
--- NOTE | 2024-08-31 16:02 | DVHPN2 ---
Subjective Overnight events noted. Patient currently on remdesivir. 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 Medications Current Medications Medications Dose Ordered Sig/Verito Route Start Time Stop Time Status Last Admin Dose Admin Acetaminophen/ Hydrocodone Bitart 1 tab Q4HP PRN PO 08/28/24 13:45 08/31/24 01:09 1 TAB Ondansetron HCl 4 mg Q4HP PRN IV 08/28/24 13:45 Enoxaparin Sodium 40 mg DAILY SC 08/29/24 10:00 08/31/24 09:29 40 MG Zinc Sulfate 220 mg DAILY PO 08/29/24 10:00 08/31/24 09:29 220 MG Ascorbic Acid 500 mg BID PO 08/28/24 22:00 08/31/24 09:30 500 MG Multivitamins 1 tab DAILY PO 08/29/24 10:00 08/31/24 09:30 1 TAB Acetaminophen 650 mg Q6HP PRN PO 08/28/24 13:45 Morphine Sulfate 2 mg Q4HPRN PRN IV 08/28/24 13:45 Nitroglycerin 0.4 mg Q5MINP PRN SL 08/28/24 13:45 Morphine Sulfate 2 mg Q30M PRN IV 08/28/24 13:45 Dexamethasone Sodium Phosphate 6 mg DAILY IV 08/28/24 13:45 08/31/24 09:30 6 MG Remdesivir 0 ml @ 0 mls/hr PER PHARMACY IV 08/29/24 10:00 09/02/24 10:01 Remdesivir 100 mg/ Sodium Chloride 250 ml @ 250 mls/hr DAILY@1500 IV 08/30/24 15:00 09/02/24 15:59 08/31/24 15:28 250 MLS/HR Diagnostic Test (Pha) 1 strip ACHS 08/29/24 11:30 08/31/24 11:42 1 STRIP Insulin Human Regular ACHS SC 08/29/24 11:30 08/31/24 11:28 6 UNITS Dextrose 50 ml UD PRN IV 08/29/24 11:15 Divalproex Sodium 500 mg TID PO 08/30/24 22:00 08/31/24 13:15 500 MG Risperidone 1 mg DAILY PO 08/31/24 10:00 08/31/24 09:29 1 MG Sertraline HCl 200 mg DAILY PO 08/31/24 10:00 08/31/24 09:29 200 MG Lisinopril 5 mg DAILY PO 08/31/24 10:00 08/31/24 09:30 5 MG Levothyroxine Sodium 175 mcg QAM@0600 PO 08/31/24 06:00 08/31/24 07:40 175 MCG Throat Lozenges 1 elissa Q2HP PRN MT 08/31/24 15:00 Laboratory Results Laboratory Tests 08/29/24 04:33 Urinalysis Test 08/28/24 04:58 Urine Color Light-yellow (Yellow) Urine Clarity Clear (Clear) Urine pH 6.5 (5.0-9.0) Urine Specific [place] 1.039 (1.001-1.035) Urine Protein Negative (Negative) Urine Ketones 2+ (Negative) H Urine Blood Negative /uL (Negative) Urine Nitrite Negative (Negative) Urine Bilirubin Negative (Negative) Urine Urobilinogen Normal mg/dL (Negative) Urine Leukocyte Esterase Negative /uL (Negative) Urine RBC 4 /hpf (0 - 3) Urine WBC 1 /hpf (0 - 3) Urine Squamous Epithelial Cells Few /hpf (<5) Urine Bacteria None seen /hpf (None Seen) Urine Glucose 4+ mg/dL (Normal) H Assessment/Plan Assessment/Plan 69-year-old male with a known history of traumatic brain injury, diabetes mellitus type 2, hypertension, dyslipidemia, morbid obesity class two presented to the hospital with low back pain unable to walk found to have 1. Acute hypoxic respiratory failure secondary to COVID-19 pneumonia 2. COVID-19 pneumonia 3. Diabetes mellitus type 2 4. Hypertension 5. Dyslipidemia 6. Morbid obesity classII -contact/droplet isolation, dexamethasone, Infectious Disease consultation appreciated, continue remdesivir -continue O2 supplementation, plan of care discussed with the patient and patient's bedside RN. Plan discussed with: Patient My Orders Orders - CARA BARNARD MD Procedure Category Date Status Time Divalproex Dr Tablet PHA 08/30/24 In Process (Depakote "Dr" Tabl 22:00 Sertraline Hcl PHA 08/31/24 In Process (Zoloft) 10:00 Lisinopril Tablet PHA 08/31/24 In Process (Zestril Tablet) 10:00 Levothyroxine Tablet PHA 08/31/24 In Process (Synthroid Tablet) 06:00 Risperidone Tablet PHA 08/31/24 In Process (Risperdal Tablet) 10:00 Throat Lozenges PHA 08/31/24 In Process (Cepastat Lozenges) 15:00 Date of Service: Aug 31, 2024 Billing Provider: CARA BARNARD MD Common Visit Codes: NOT BILLABLE CARA BARNARD MD Aug 31, 2024 16:01
[2024-08-31] MEDS: THROAT LOZENGES(CEPASTAT) MT PRN (16:35)
[2024-09-01] VITALS (11 sets, daily range): BP systolic 108–133; BP diastolic 55–74; PULSE 53–70; RESP 17–20; TEMP 97.5–98.2; O2SAT 95–98
--- NOTE | 2024-09-01 13:03 | DVHPN2 ---
Progress Note - Dictate Date Seen: Sep 01, 2024 Subjective Patient was seen and evaluated. He is alert and awake, oriented x4. Patient ambulates with use of walker at the bed side. No complaints of pain, SOB at this time. vital signs Vital Sign Date Time Temp Pulse Resp B/P (MAP) Pulse Ox O2 Delivery O2 Flow Rate FiO2 09/01/24 09:47 97.5 58 18 112/55 (74) 98 97.5 09/01/24 08:16 Nasal Cannula* 2 28 Total Intake and Output 08/31/24 08/31/24 09/01/24 15:00 23:00 07:00 Intake Total 360 ml 810 ml 800 ml Output Total 825 ml 450 ml Balance 360 ml -15 ml 350 ml medications Current Medications Medications Dose Ordered Sig/Verito Route Start Time Stop Time Status Last Admin Dose Admin Acetaminophen/ Hydrocodone Bitart 1 tab Q4HP PRN PO 08/28/24 13:45 09/01/24 06:17 1 TAB Ondansetron HCl 4 mg Q4HP PRN IV 08/28/24 13:45 Enoxaparin Sodium 40 mg DAILY SC 08/29/24 10:00 09/01/24 09:28 40 MG Zinc Sulfate 220 mg DAILY PO 08/29/24 10:00 09/01/24 09:27 220 MG Ascorbic Acid 500 mg BID PO 08/28/24 22:00 09/01/24 09:27 500 MG Multivitamins 1 tab DAILY PO 08/29/24 10:00 09/01/24 09:28 1 TAB Acetaminophen 650 mg Q6HP PRN PO 08/28/24 13:45 Morphine Sulfate 2 mg Q4HPRN PRN IV 08/28/24 13:45 Nitroglycerin 0.4 mg Q5MINP PRN SL 08/28/24 13:45 Morphine Sulfate 2 mg Q30M PRN IV 08/28/24 13:45 Dexamethasone Sodium Phosphate 6 mg DAILY IV 08/28/24 13:45 09/01/24 09:26 6 MG Remdesivir 0 ml @ 0 mls/hr PER PHARMACY IV 08/29/24 10:00 09/02/24 10:01 Remdesivir 100 mg/ Sodium Chloride 250 ml @ 250 mls/hr DAILY@1500 IV 08/30/24 15:00 09/02/24 15:59 08/31/24 15:28 250 MLS/HR Diagnostic Test (Pha) 1 strip ACHS 08/29/24 11:30 09/01/24 11:42 1 STRIP Insulin Human Regular ACHS SC 08/29/24 11:30 09/01/24 11:42 4 UNITS Dextrose 50 ml UD PRN IV 08/29/24 11:15 Divalproex Sodium 500 mg TID PO 08/30/24 22:00 09/01/24 06:17 500 MG Risperidone 1 mg DAILY PO 08/31/24 10:00 09/01/24 09:28 1 MG Sertraline HCl 200 mg DAILY PO 08/31/24 10:00 09/01/24 09:27 200 MG Lisinopril 5 mg DAILY PO 08/31/24 10:00 09/01/24 09:27 5 MG Levothyroxine Sodium 175 mcg QAM@0600 PO 08/31/24 06:00 09/01/24 06:50 175 MCG Throat Lozenges 1 jose roberto Q2HP PRN MT 08/31/24 15:00 09/01/24 06:53 1 JOSE ROBERTO objective General: Patient appears alert, comfortable and well-appearing. HEENT: Normocephalic, atraumatic, Sclera anicteric, conjunctiva clear, No nasal discharge or congestion. Mucous membranes moist, no tonsillar erythema or exudates. Neck: No cervical lymphadenopathy or masses. No neck stiffness. Lungs: Breath sounds clear bilaterally, no wheezes, rales, or rhonchi. No use of accessory muscles or respiratory distress. Cardiovascular: Regular rate and rhythm, no murmurs, rubs, or gallops. Abdomen: Soft, non-tender, non-distended. Bowel sounds present in all quadrants. No hepatosplenomegaly or masses. Skin: No rash, petechiae, or ecchymosis. Extremities: No edema, cyanosis, or clubbing. No tenderness to palpation, erythema, or swelling in joints. No signs of deep vein thrombosis (DVT). Neurologic: Patient is alert and oriented to person, place, and time. Cranial nerves II-XII intact. Motor strength 5/5 bilaterally in all extremities. laboratory and microbiology Laboratory Tests 08/29/24 04:33 Test 08/29/24 04:33 Range/Units Serum Glucose 114 H 74-106 mg/dL Assessment/Plan Patient is a 69-year-old male with 1. COVID-19 infection 2. Acute hypoxic respiratory failure Recommendations 1. Start remdesivir for 5 days (08/30 started) 2. Continue Dexamethasone 6 mg per daily for 10 days or until discharge 3. Consider self proning Thank you for consultation. Plan discussed with the nurse and physician. ALYSE WEBER MD Sep 01, 2024 13:02
[2024-09-01] MEDS: guaiFENesin-DM 100/10mg/5ml SYR PO PRN (15:16)
--- NOTE | 2024-09-01 16:35 | DVHPN2 ---
Subjective Overnight events noted. Patient was complaining of cough, Robitussin ordered. 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 Medications Current Medications Medications Dose Ordered Sig/Verito Route Start Time Stop Time Status Last Admin Dose Admin Acetaminophen/ Hydrocodone Bitart 1 tab Q4HP PRN PO 08/28/24 13:45 09/01/24 06:17 1 TAB Ondansetron HCl 4 mg Q4HP PRN IV 08/28/24 13:45 Enoxaparin Sodium 40 mg DAILY SC 08/29/24 10:00 09/01/24 09:28 40 MG Zinc Sulfate 220 mg DAILY PO 08/29/24 10:00 09/01/24 09:27 220 MG Ascorbic Acid 500 mg BID PO 08/28/24 22:00 09/01/24 09:27 500 MG Multivitamins 1 tab DAILY PO 08/29/24 10:00 09/01/24 09:28 1 TAB Acetaminophen 650 mg Q6HP PRN PO 08/28/24 13:45 Morphine Sulfate 2 mg Q4HPRN PRN IV 08/28/24 13:45 Nitroglycerin 0.4 mg Q5MINP PRN SL 08/28/24 13:45 Morphine Sulfate 2 mg Q30M PRN IV 08/28/24 13:45 Dexamethasone Sodium Phosphate 6 mg DAILY IV 08/28/24 13:45 09/01/24 09:26 6 MG Remdesivir 0 ml @ 0 mls/hr PER PHARMACY IV 08/29/24 10:00 09/02/24 10:01 Remdesivir 100 mg/ Sodium Chloride 250 ml @ 250 mls/hr DAILY@1500 IV 08/30/24 15:00 09/02/24 15:59 09/01/24 14:34 250 MLS/HR Diagnostic Test (Pha) 1 strip ACHS 08/29/24 11:30 09/01/24 11:42 1 STRIP Insulin Human Regular ACHS SC 08/29/24 11:30 09/01/24 11:42 4 UNITS Dextrose 50 ml UD PRN IV 08/29/24 11:15 Divalproex Sodium 500 mg TID PO 08/30/24 22:00 09/01/24 14:34 500 MG Risperidone 1 mg DAILY PO 08/31/24 10:00 09/01/24 09:28 1 MG Sertraline HCl 200 mg DAILY PO 08/31/24 10:00 09/01/24 09:27 200 MG Lisinopril 5 mg DAILY PO 08/31/24 10:00 09/01/24 09:27 5 MG Levothyroxine Sodium 175 mcg QAM@0600 PO 08/31/24 06:00 09/01/24 06:50 175 MCG Throat Lozenges 1 jose roberto Q2HP PRN MT 08/31/24 15:00 09/01/24 15:16 1 JOSE ROBERTO Guaifenesin/ Dextromethorphan 10 ml Q4HP PRN PO 09/01/24 14:00 09/01/24 15:16 10 ML Albuterol 1.25 mg Q4HPRN PRN NEB 09/01/24 16:15 Laboratory Results Laboratory Tests 08/29/24 04:33 Urinalysis Test 08/28/24 04:58 Urine Color Light-yellow (Yellow) Urine Clarity Clear (Clear) Urine pH 6.5 (5.0-9.0) Urine Specific [place] 1.039 (1.001-1.035) Urine Protein Negative (Negative) Urine Ketones 2+ (Negative) H Urine Blood Negative /uL (Negative) Urine Nitrite Negative (Negative) Urine Bilirubin Negative (Negative) Urine Urobilinogen Normal mg/dL (Negative) Urine Leukocyte Esterase Negative /uL (Negative) Urine RBC 4 /hpf (0 - 3) Urine WBC 1 /hpf (0 - 3) Urine Squamous Epithelial Cells Few /hpf (<5) Urine Bacteria None seen /hpf (None Seen) Urine Glucose 4+ mg/dL (Normal) H Assessment/Plan Assessment/Plan 69-year-old male with a known history of traumatic brain injury, diabetes mellitus type 2, hypertension, dyslipidemia, morbid obesity class two presented to the hospital with low back pain unable to walk found to have 1. Acute hypoxic respiratory failure secondary to COVID-19 pneumonia 2. COVID-19 pneumonia 3. Diabetes mellitus type 2 4. Hypertension 5. Dyslipidemia 6. Morbid obesity classII -contact/droplet isolation, dexamethasone, Infectious Disease consultation appreciated, continue remdesivir -continue O2 supplementation, plan of care discussed with the patient and patient's bedside RN. 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
--- NOTE | 2024-09-01 18:06 | DVH ---
EXAM: CT HEAD WITHOUT CONTRAST INDICATION: Fall at home and hit head. TECHNIQUE: CT of the head without intravenous contrast. Radiation Dose Information: CT Dose: CTDI volume is 54 mGy. Dose-length product is 1083.43 mGy*cm The dose indicators for CT are the volume Computed Tomography (CT) Dose Index (CTDIvol) and the Dose Length Product (DLP), and are measured in units of mGy and mGy-cm, respectively. These indicators are not patient dose, but values generated from the CT scanner acquisition factors. The report includes radiation exposure data for exposures received during this examination. COMPARISON: None FINDINGS: There is no evidence of acute intracranial hemorrhage, extra-axial collection, mass effect, midline s hift, herniation or hydrocephalus. The ventricles, sulci and cisterns are age appropriate. The laboy-white differentiation is intact. Patchy periventricular and subcortical white matter hypoattenuation is nonspecific but may be related to small vessel ischemic disease. The visualized paranasal sinuses and mastoid air cells are clear. The surrounding soft tissues and osseous structures are unremarkable. IMPRESSION: 1. No acute intracranial hemorrhage. 2. No CT findings of skull fracture. 3. No CT findings of territorial ischemia.
[2024-09-02] VITALS (11 sets, daily range): BP systolic 117–127; BP diastolic 61–82; PULSE 59–77; RESP 16–22; TEMP 97.5–98.1; O2SAT 90–98
[2024-09-02] MEDS: ALBUTEROL SULF 2.5 MG/0.5ML(0.5%) NEB SOLN NEB PRN (01:50)
--- NOTE | 2024-09-02 13:17 | DVHPN2 ---
Progress Note - Dictate Date Seen: Sep 02, 2024 Subjective Patient was seen and evaluated. He is alert and awake, oriented x4. Patient ambulates with use of walker at the bed side. No complaints of pain, SOB at this time. patient is isolated for COVID positive. vital signs Vital Sign Date Time Temp Pulse Resp B/P (MAP) Pulse Ox O2 Delivery O2 Flow Rate FiO2 09/02/24 09:37 117/65 09/02/24 09:00 94 Nasal Cannula 4.0 09/02/24 09:00 36 09/02/24 08:57 98.0 59 16 98.0 Total Intake and Output 09/01/24 09/01/24 09/02/24 15:00 23:00 07:00 Intake Total 850 ml 450 ml Output Total 1300 ml 1200 ml Balance -450 ml -750 ml medications Current Medications Medications Dose Ordered Sig/Verito Route Start Time Stop Time Status Last Admin Dose Admin Acetaminophen/ Hydrocodone Bitart 1 tab Q4HP PRN PO 08/28/24 13:45 09/02/24 03:12 1 TAB Ondansetron HCl 4 mg Q4HP PRN IV 08/28/24 13:45 Enoxaparin Sodium 40 mg DAILY SC 08/29/24 10:00 09/02/24 09:36 40 MG Zinc Sulfate 220 mg DAILY PO 08/29/24 10:00 09/02/24 09:37 220 MG Ascorbic Acid 500 mg BID PO 08/28/24 22:00 09/02/24 09:37 500 MG Multivitamins 1 tab DAILY PO 08/29/24 10:00 09/02/24 09:37 1 TAB Acetaminophen 650 mg Q6HP PRN PO 08/28/24 13:45 Morphine Sulfate 2 mg Q4HPRN PRN IV 08/28/24 13:45 Nitroglycerin 0.4 mg Q5MINP PRN SL 08/28/24 13:45 Morphine Sulfate 2 mg Q30M PRN IV 08/28/24 13:45 Dexamethasone Sodium Phosphate 6 mg DAILY IV 08/28/24 13:45 09/02/24 09:36 6 MG Remdesivir 100 mg/ Sodium Chloride 250 ml @ 250 mls/hr DAILY@1500 IV 08/30/24 15:00 09/02/24 15:59 09/01/24 14:34 250 MLS/HR Diagnostic Test (Pha) 1 strip ACHS 08/29/24 11:30 09/02/24 12:09 1 STRIP Insulin Human Regular ACHS SC 08/29/24 11:30 09/02/24 12:09 4 UNITS Dextrose 50 ml UD PRN IV 08/29/24 11:15 Divalproex Sodium 500 mg TID PO 08/30/24 22:00 09/02/24 05:56 500 MG Risperidone 1 mg DAILY PO 08/31/24 10:00 09/02/24 09:37 1 MG Sertraline HCl 200 mg DAILY PO 08/31/24 10:00 09/02/24 09:37 200 MG Lisinopril 5 mg DAILY PO 08/31/24 10:00 09/02/24 09:37 5 MG Levothyroxine Sodium 175 mcg QAM@0600 PO 08/31/24 06:00 09/02/24 05:56 175 MCG Throat Lozenges 1 jose roberto Q2HP PRN MT 08/31/24 15:00 09/01/24 15:16 1 JOSE ROBERTO Guaifenesin/ Dextromethorphan 10 ml Q4HP PRN PO 09/01/24 14:00 09/02/24 09:36 10 ML Albuterol 1.25 mg Q4HPRN PRN NEB 09/01/24 16:15 09/02/24 01:50 1.25 MG objective General: Patient appears alert, comfortable and well-appearing. HEENT: Normocephalic, atraumatic, Sclera anicteric, conjunctiva clear, No nasal discharge or congestion. Mucous membranes moist, no tonsillar erythema or exudates. Neck: No cervical lymphadenopathy or masses. No neck stiffness. Lungs: Breath sounds clear bilaterally, no wheezes, rales, or rhonchi. No use of accessory muscles or respiratory distress. Cardiovascular: Regular rate and rhythm, no murmurs, rubs, or gallops. Abdomen: Soft, non-tender, non-distended. Bowel sounds present in all quadrants. No hepatosplenomegaly or masses. Skin: No rash, petechiae, or ecchymosis. Extremities: No edema, cyanosis, or clubbing. No tenderness to palpation, erythema, or swelling in joints. No signs of deep vein thrombosis (DVT). Neurologic: Patient is alert and oriented to person, place, and time. Cranial nerves II-XII intact. Motor strength 5/5 bilaterally in all extremities. laboratory and microbiology Laboratory Tests 08/29/24 04:33 Test 08/29/24 04:33 Range/Units Serum Glucose 114 H 74-106 mg/dL Assessment/Plan Patient is a 69-year-old male with 1. COVID-19 infection 2. Acute hypoxic respiratory failure Recommendations 1. Start remdesivir for 5 days (08/30 started) 2. Continue Dexamethasone 6 mg per daily for 10 days or until discharge 3. Consider self proning Thank you for consultation. Plan discussed with the nurse and physician. ALYSE WEBER MD Sep 02, 2024 13:17
[2024-09-02] MEDS ORDERED: METH4PAK PO (17:19)
--- NOTE | 2024-09-02 19:24 | DVHDS2 ---
Discharge Summary Date of Admission Aug 28, 2024 at 13:34 Date of Discharge: Sep 02, 2024 Labs/Diagnostic Data: Laboratory Results Test 09/02/24 16:49 08/29/24 04:33 08/28/24 04:58 08/28/24 04:55 POC Glucose 207 mg/dl (70-106) White Blood Count 5.8 10^3/uL (4.4-10.8) Red Blood Count 5.30 10^6/uL (4.5-5.90) Hemoglobin 16.1 g/dL (13.5-17.5) Hematocrit 49.2 % (41.0-53.0) Mean Corpuscular Volume 93.0 fL (80.0-100.0) Mean Corpuscular Hemoglobin 30.5 pg (28.0-32.0) Mean Corpuscular Hemoglobin Concent 32.8 g/dL (32.0-36.0) Red Cell Distribution Width 14.8 % (11.8-14.3) Platelet Count 102 10^3/uL (140-450) Mean Platelet Volume 8.5 fL (6.9-10.8) Neutrophils (%) (Auto) 70.7 % (37.0-80.0) Lymphocytes (%) (Auto) 16.1 % (10.0-50.0) Monocytes (%) (Auto) 13.0 % (0.0-12.0) Eosinophils (%) (Auto) 0.0 % (0.0-7.0) Basophils (%) (Auto) 0.2 % (0.0-2.0) Neutrophils # (Auto) 4.1 10 ^3/uL (1.6-8.6) Lymphocytes # (Auto) 0.9 10 ^3/uL (0.4-5.4) Monocytes # (Auto) 0.8 10 ^3/uL (0-1.3) Eosinophils # (Auto) 0 10 ^3/uL (0-0.8) Basophils # (Auto) 0 10 ^3/uL (0-0.2) Nucleated Red Blood Cells 0.2 % Sodium Level 138 mmol/L (136-145) Potassium Level 4.4 mmol/L (3.5-5.1) Chloride Level 104 mmol/L (98-107) Carbon Dioxide Level 28 mmol/L (20-31) Anion Gap 6 (5-15) Blood Urea Nitrogen 22 mg/dL (9-23) Creatinine 0.64 mg/dL (0.700-1.30) Glomerular Filtration Rate Calc 102 mL/min (>90) BUN/Creatinine Ratio 34.4 (10.0-20.0) Serum Glucose 114 mg/dL (74-106) Calcium Level 9.3 mg/dL (8.7-10.4) Total Bilirubin 0.4 mg/dL (0.2-1.0) Aspartate Amino Transferase (AST) 31 U/L (13-40) Alanine Aminotransferase (ALT) 42 U/L (7-40) Alkaline Phosphatase 68 U/L (46-116) Total Protein 7.3 g/dL (5.7-8.2) Albumin 4.1 g/dL (3.2-4.8) Urine Color Light-yellow (Yellow) Urine Clarity Clear (Clear) Urine pH 6.5 (5.0-9.0) Urine Specific [place] 1.039 (1.001-1.035) Urine Protein Negative (Negative) Urine Ketones 2+ (Negative) Urine Blood Negative /uL (Negative) Urine Nitrite Negative (Negative) Urine Bilirubin Negative (Negative) Urine Urobilinogen Normal mg/dL (Negative) Urine Leukocyte Esterase Negative /uL (Negative) Urine RBC 4 /hpf (0 - 3) Urine WBC 1 /hpf (0 - 3) Urine Squamous Epithelial Cells Few /hpf (<5) Urine Bacteria None seen /hpf (None Seen) Urine Glucose 4+ mg/dL (Normal) Influenza Type A Antigen Negative (Negative) Influenza Type B Antigen Negative (Negative) SARS-CoV-2 Antigen (Rapid) Positive (NEGATIVE) Test 08/28/24 04:40 Troponin I High Sensitivity 3 ng/L (</=54) Other Laboratory Tests 08/29/24 04:33 Brief Hx & Hospital Course: 69-year-old male with a known history of traumatic brain injury, diabetes mellitus type 2, hypertension, dyslipidemia, morbid obesity classII who presented to the hospital with low back pain unable to walk found to have acute hypoxic respiratory. To COVID-19 pneumonia. Patient was eventually seen by Infectious Disease. Patient was started on remdesivir. Patient was to be arranged for home oxygen. Patient currently understand verbalize understanding and agreement to plan. Condition at Discharge: Stable Final Diagnosis/Problems List 1. Acute hypoxic respiratory failure secondary to COVID-19 pneumonia 2. COVID-19 pneumonia 3. Diabetes mellitus type 2 4. Hypertension 5. Dyslipidemia 6. Morbid obesity classII Discharge Disposition: Home with [facility] Discharge Will this Physician continue t: No Discharge Instruct/Medications Diet: Cardiac 2g Na,low cholest Diet comment: 1999 ADA diet Activity: [id number] Activity comment: COVID-19 Follow Up/Referral: Follow up with PCP in 1-2 weeks Medications: Medrol Dosepak as prescribed Discharge Statement: "Patient was advised to return to the ER or call 911 if any headaches, dizziness, shortness of breath, chest pain, abdominal pain, bleeding, fevers, or worsening of medical condition. Patient was counseled about treatment plan, medications, possible side effects, patientverbalized understanding. All questions were answered to the best of my ability. This discharge took greater then 30 minutes in planning, reviewing documentation, counseling the patient, and discussing with other team members." ASSESSMENT ASSESSMENT Assessment 69-year-old male with a known history of traumatic brain injury, diabetes mellitus type 2, hypertension, dyslipidemia, morbid obesity class two presented to the hospital with low back pain unable to walk found to have 1. Acute hypoxic respiratory failure secondary to COVID-19 pneumonia 2. COVID-19 pneumonia 3. Diabetes mellitus type 2 4. Hypertension 5. Dyslipidemia 6. Morbid obesity classII Date of Service: Sep 02, 2024 Billing Provider: CARA BARNARD MD Common Visit Codes: NOT BILLABLE CARA BARNARD MD Sep 02, 2024 19:24
[2024-09-03] VITALS (11 sets, daily range): BP systolic 111–183; BP diastolic 66–85; PULSE 61–101; RESP 17–22; TEMP 97.7–98.5; O2SAT 92–97
--- NOTE | 2024-09-03 12:57 | DVHPN2 ---
Progress Note - Dictate Date Seen: Sep 03, 2024 Subjective Patient was seen and evaluated. He is alert and awake, oriented x4. Patient ambulates with use of walker at the bed side. No complaints of pain, SOB at this time. patient is isolated for COVID positive. vital signs Vital Sign Date Time Temp Pulse Resp B/P (MAP) Pulse Ox O2 Delivery O2 Flow Rate FiO2 09/03/24 12:28 97.7 88 22 112/73 (86) 97 97.7 09/03/24 09:13 Nasal Cannula* 1 24 Total Intake and Output 09/02/24 09/02/24 09/03/24 15:00 23:00 07:00 Intake Total 650 ml 300 ml Output Total 800 ml 1125 ml Balance -150 ml -825 ml medications Current Medications Medications Dose Ordered Sig/Verito Route Start Time Stop Time Status Last Admin Dose Admin Acetaminophen/ Hydrocodone Bitart 1 tab Q4HP PRN PO 08/28/24 13:45 09/02/24 21:04 1 TAB Ondansetron HCl 4 mg Q4HP PRN IV 08/28/24 13:45 Enoxaparin Sodium 40 mg DAILY SC 08/29/24 10:00 09/03/24 09:25 40 MG Zinc Sulfate 220 mg DAILY PO 08/29/24 10:00 09/03/24 09:25 220 MG Ascorbic Acid 500 mg BID PO 08/28/24 22:00 09/03/24 09:24 500 MG Multivitamins 1 tab DAILY PO 08/29/24 10:00 09/03/24 09:25 1 TAB Acetaminophen 650 mg Q6HP PRN PO 08/28/24 13:45 Morphine Sulfate 2 mg Q4HPRN PRN IV 08/28/24 13:45 Nitroglycerin 0.4 mg Q5MINP PRN SL 08/28/24 13:45 Morphine Sulfate 2 mg Q30M PRN IV 08/28/24 13:45 Dexamethasone Sodium Phosphate 6 mg DAILY IV 08/28/24 13:45 09/03/24 09:22 6 MG Diagnostic Test (Pha) 1 strip ACHS 08/29/24 11:30 09/03/24 12:13 1 STRIP Insulin Human Regular ACHS SC 08/29/24 11:30 09/03/24 12:38 4 UNITS Dextrose 50 ml UD PRN IV 08/29/24 11:15 Divalproex Sodium 500 mg TID PO 08/30/24 22:00 09/03/24 06:09 500 MG Risperidone 1 mg DAILY PO 08/31/24 10:00 09/03/24 09:24 1 MG Sertraline HCl 200 mg DAILY PO 08/31/24 10:00 09/03/24 09:24 200 MG Lisinopril 5 mg DAILY PO 08/31/24 10:00 09/03/24 09:25 5 MG Levothyroxine Sodium 175 mcg QAM@0600 PO 08/31/24 06:00 09/03/24 06:10 175 MCG Throat Lozenges 1 jose roberto Q2HP PRN MT 08/31/24 15:00 09/02/24 16:57 1 JOSE ROBERTO Guaifenesin/ Dextromethorphan 10 ml Q4HP PRN PO 09/01/24 14:00 09/02/24 16:57 10 ML Albuterol 1.25 mg Q4HPRN PRN NEB 09/01/24 16:15 09/02/24 01:50 1.25 MG objective General: Patient appears alert, comfortable and well-appearing. HEENT: Normocephalic, atraumatic, Sclera anicteric, conjunctiva clear, No nasal discharge or congestion. Mucous membranes moist, no tonsillar erythema or exudates. Neck: No cervical lymphadenopathy or masses. No neck stiffness. Lungs: Breath sounds clear bilaterally, no wheezes, rales, or rhonchi. No use of accessory muscles or respiratory distress. Cardiovascular: Regular rate and rhythm, no murmurs, rubs, or gallops. Abdomen: Soft, non-tender, non-distended. Bowel sounds present in all quadrants. No hepatosplenomegaly or masses. Skin: No rash, petechiae, or ecchymosis. Extremities: No edema, cyanosis, or clubbing. No tenderness to palpation, erythema, or swelling in joints. No signs of deep vein thrombosis (DVT). Neurologic: Patient is alert and oriented to person, place, and time. Cranial nerves II-XII intact. Motor strength 5/5 bilaterally in all extremities. laboratory and microbiology Laboratory Tests 08/29/24 04:33 Test 08/29/24 04:33 Range/Units Serum Glucose 114 H 74-106 mg/dL Assessment/Plan Patient is a 69-year-old male with 1. COVID-19 infection 2. Acute hypoxic respiratory failure Recommendations 1. Stopped remdesivir (08/30 started) to (stopped 09/02) 2. Continue Dexamethasone 6 mg per daily for 10 days or until discharge 3. Consider self proning Thank you for consultation. Plan discussed with the nurse and physician. ALYSE WEBER MD Sep 03, 2024 12:57
[2024-09-04 01:00] VITALS: BP 128/72; PULSE 56; RESP 16; TEMP 98.3; O2SAT 91
[2024-09-04 05:00] VITALS: BP 135/77; PULSE 53; RESP 18; TEMP 98.5; O2SAT 96
[2024-09-04 06:54] VITALS: O2SAT 96
== END 2024-09-04 09:58 | disposition home health service (06) | DRG 177 ==
LOC: EDBD 03:04 → ER 03:04 → TELE 13:34 → TELE-WESTW 19:55
PROVIDERS: ADMIT Internal Medicine; ATTEND Internal Medicine
PROC: XW033E5 Introduction of Remdesivir Anti-infective into Peripheral Vein, Percutaneous Approach, New Technology Group 5 (ICD-10-PCS; principal; 2024-08-29)
DX: U07.1 COVID-19 (principal); J12.82 Pneumonia due to coronavirus disease 2019; J96.01 Acute respiratory failure with hypoxia; E11.9 Type 2 diabetes mellitus without complications; E66.01 Morbid (severe) obesity due to excess calories; E78.5 Hyperlipidemia, unspecified; G89.29 Other chronic pain; I10 Essential (primary) hypertension; Z87.820 Personal history of traumatic brain injury; Z68.34 Body mass index [BMI] 34.0-34.9, adult
CPT/HCPCS: 36415; 70450; 71045; 80048; 80053; 81001; 82962; 84484; 85025; 87426; 87804; 93005; 94640; 96374; 96375; 97110; 97116; 97163; 97530; 99291; G0378; J1100; J1815